=== PATIENT | female | born 1995 | race Asian ===

== ENCOUNTER 2017-12-14 18:38 | Emergency (ER) | payer MEDICAID ==
[~2017-12-14] VITALS: Ht 149.9 cm; Wt 86.0 kg
[2017-12-15 01:44] LABS: BASOPHILS % 0.3 % (0.0-2.0); EOSINOPHILS % 1.7 % (0.0-5.0); HEMATOCRIT. 39.8 % (36.0-48.0); HEMOGLOBIN. 12.8 g/dL (12.0-16.0); LYMPHOCYTES % 17.4 % (20.0-50.0); MEAN CORPUSCULAR HEMOGLOBIN 27.8 pg (28.0-32.0); MEAN CORPUSCULAR VOLUME 86.3 fL (81.0-99.0); MEAN PLATELET VOLUME 8.1 fl (7.4-10.4); MONOCYTES % 4.7 % (2.0-8.0); NEUTROPHILS % 75.9 % (40.0-76.0); PLATELET 413 x1000/uL (130-400); RED BLOOD CELL COUNT 4.61 mill/uL (4.2-5.4); RED CELL DISTRIBUTION WIDTH 14.1 % (11.6-14.6)
[2017-12-15 01:50] LABS: CLARITY URINE CLEAR (CLEAR); COLOR URINE YELLOW (YELLOW); KETONES URINE TRACE (NEGATIVE); LEUKOCYTE ESTERASE URINE 1+ (NEGATIVE); NITRITE URINE NEGATIVE (NEGATIVE); OCCULT BLOOD URINE NEGATIVE (NEGATIVE); PROTEIN URINE NEGATIVE (NEGATIVE)
[2017-12-15 02:04] LABS: CHLORIDE 104 mEq/L (98-107)
[2017-12-15 02:13] LABS: CARBON DIOXIDE 26 mEq/L (21-32)
[2017-12-15 03:13] VITALS: BP 121/75
[2017-12-15] MEDS ORDERED: AZITHROMYCIN 500 MG TABLET PO ONE (04:45)
[2017-12-15] MEDS ORDERED: CEFTRIAXONE SODIUM 250 MG/VIAL IM ONE (04:45)
[2017-12-15] MEDS ORDERED: IBUPROFEN 600MG TABLET PO ONE (05:45)
[2017-12-18 06:16] LABS: CHLAMYDIA TRACHOMATIS NAA Positive (Negative); NEISSERIA GONORRHOEAE NAA Negative (Negative)
== END 2017-12-15 05:53 | disposition home or self-care (01) ==
LOC: ER 20:48
DX: R10.2 Pelvic and perineal pain (principal)
CPT/HCPCS: 36415; 76830; 76856; 80053; 81001; 83690; 85025; 87086; 87210; 87491; 87591; 96372; 99285; J0696